=== PATIENT | male | born 1995 | race Caucasian/White ===

== ENCOUNTER 2018-06-19 23:58 | Emergency (ER) | payer BC, OTHER ==
[~2018-06-19] VITALS: Ht 187.9 cm; Wt 93.0 kg
[~2018-06-19 23:58] MED LIST: MOTRIN600 MG PO; NAPROSYN500 MG PO; NKHM
[2018-06-20 00:53] LABS: BASO % 0.4 % (0.0-1.0); EOS % 0.4 % (1.0-4.0); HEMATOCRIT 41.8 % (42.0-52.0); HEMOGLOBIN 14.7 g/dl (14.0-18.0); MEAN CELL VOLUME 83.3 fl (80.0-94.0); MEAN CORPUSCULAR HGB 29.3 pg (27.0-31.0); MEAN CORPUSCULAR HGB CONC 35.2 g/dl (33.0-37.0); MEAN PLATELET VOLUME 9.1 fl (9.6-12.3); MONO # 0.6 10*3/uL (0.1-1.0); MONO % 14.1 % (3.0-9.0); NEUT # 2.8 10*3/uL (2.3-7.9); NEUT % 62.7 % (47.0-73.0); PLATELET COUNT AUTOMATED 183 10*3/uL (130-400); RED BLOOD COUNT 5.02 10*6/uL (4.50-5.90); RED CELL DISTRI WIDTH 11.9 % (0-14.5); WHITE BLOOD COUNT 4.5 10*3/uL (4.8-10.8)
[2018-06-20 01:01] LABS: INTERNATIONAL NORM RATIO 1.2 (2.0-3.5)
[2018-06-20 01:09] LABS: ALBUMIN 3.8 gm/dl (3.1-4.5); ALKALINE PHOSPHATASE 61 U/L (45-117); BUN 14 mg/dl (7-24); CHLORIDE 103 mmol/L (98-107); CREATININE 0.87 mg/dL (0.70-1.30); POTASSIUM 3.5 mmol/L (3.5-5.1); SGOT/AST 45 IU/L (3-35); SGPT/ALT 85 U/L (12-78); SODIUM 137 mmol/L (136-145); TOTAL PROTEIN 6.6 gm/dL (6.4-8.2)
[2018-06-20 01:10] LABS: CKMB 2.4 ng/ml (0.5-3.6); TROPONIN I 0.019 ng/ml (<0.045)
[2018-06-20 01:24] LABS: BILIRUBIN NEGATIVE (NEGATIVE); BLOOD NEGATIVE (NEGATIVE); CLARITY CLEAR (CLEAR); COLOR YELLOW (YELLOW); GLUCOSE NEGATIVE (NEGATIVE); KETONE NEGATIVE (NEGATIVE); LEUKO ESTERASE NEGATIVE (NEGATIVE); NITRITE NEGATIVE (NEGATIVE)
[2018-06-20 01:29] LABS: RBC 0-2 rbc/hpf (0-2); WBC 0-2 wbc/hpf (0-5)
[2018-06-20] MEDS ORDERED: LEVAQUIN750 M1 PO (01:52)
== END 2018-06-20 01:57 | disposition home or self-care (01) ==
LOC: ED 23:58
PROVIDERS: Physician Assistant
DX: J06.9 Acute upper respiratory infection, unspecified (principal); Z88.1 Allergy status to other antibiotic agents

== ENCOUNTER 2023-02-08 20:12 | Emergency (ER) | payer BC ==
[~2023-02-08] VITALS: Wt 106.6 kg
[~2023-02-08 20:12] MED LIST changes: +LEVAQUIN750 M1 PO
[2023-02-09 00:24] LABS: BASO % 0.6 % (0.0-1.0); EOS % 0.8 % (1.0-4.0); HEMATOCRIT 42.5 % (42.0-52.0); LYMPH # 0.8 10*3/uL (1.3-4.4); LYMPH % 14.5 % (27.0-41.0); MEAN CELL VOLUME 83.8 fl (80.0-94.0); MEAN CORPUSCULAR HGB 29.2 pg (27.0-31.0); MEAN CORPUSCULAR HGB CONC 34.8 g/dl (33.0-37.0); MEAN PLATELET VOLUME 9.1 fl (9.6-12.3); MONO # 0.6 10*3/uL (0.1-1.0); MONO % 11.1 % (3.0-9.0); NEUT # 3.9 10*3/uL (2.3-7.9); NEUT % 72.6 % (47.0-73.0); PLATELET COUNT AUTOMATED 162 10*3/uL (130-400); RED BLOOD COUNT 5.07 10*6/uL (4.50-5.90); WHITE BLOOD COUNT 5.3 10*3/uL (4.8-10.8)
[2023-02-09 00:46] LABS: ALKALINE PHOSPHATASE 63 U/L (46-116); BUN 12 mg/dl (9-23); CHLORIDE 105 mmol/L (98-107); POTASSIUM 3.5 mmol/L (3.4-5.1); SGPT/ALT 229 U/L (10-49)
[2023-02-09 02:14] LABS: BILIRUBIN Negative (Negative); BLOOD Negative (Negative); CLARITY Clear (Clear); COLOR Yellow (Yellow); GLUCOSE Negative (Negative); KETONE Negative (Negative); LEUKO ESTERASE Negative (Negative); NITRITE Negative (Negative); UROBILINOGEN 0.2 E.U./dl (0.0-1.0)
[2023-02-09 02:27] LABS: RBC 0-2 rbc/hpf (0-2); WBC 0-2 wbc/hpf (0-5)
[2023-02-09] MEDS ORDERED: VIBRAMYCIN100 MG PO (03:21)
== END 2023-02-09 03:55 | disposition home or self-care (01) ==
LOC: ED 20:12
PROVIDERS: Emergency Medicine
DX: B34.9 Viral infection, unspecified (principal); R74.01 Elevation of levels of liver transaminase levels; R21 Rash and other nonspecific skin eruption; Z88.8 Allergy status to other drugs, medicaments and biological substances; Z20.822 Contact with and (suspected) exposure to COVID-19